=== PATIENT | female | born 1940 | race Caucasian/White ===

== ENCOUNTER 2016-05-20 10:32 | Inpatient (IN) | payer BC ==
--- NOTE | ~2016-05-20 | CN ---
Consultation Report [facility] [address] [place]. [address] NAME: BERTO LOMBARDI : 38 STATUS : ADM Lissa PAT#: [id number] AGE: 76 ADM/REG DATE : 05/20/16 MR#: [id number] REPORT SERV DATE: 05/21/16 DICTATED BY: MIGUEL MURPHY DATE: 05/21/16 REPORT STATUS : Draft TRANSCRIBED BY: MODL DATE: 05/21/16 CONSULT REPORT DATE OF CONSULTATION: 05/21/2016 REASON FOR CONSULTATION: Multivessel coronary artery disease. HISTORY OF PRESENT ILLNESS: This is a pleasant 76-year-old female, who has been experiencing intermittent chest pain for the last couple of months. She had an outpatient cardiac catheterization on 05/11/2016 which showed multivessel coronary artery disease with a 70% calcific ostial lesion to her left main as well as a 70% calcific ostial RCA and a 60% proximal innominate artery. She had an echocardiogram done on April 21 2016 which showed moderate left ventricular systolic dysfunction with ejection fraction around 40% and no significant valvular disease. After her cardiac catheterization 2 weeks ago, she was going to be referred for surgical evaluation for CAB versus high risk PCI versus medical therapy but she came back into the hospital yesterday with complaints of chest pain. Her EKG showed bundle branch block and her cardiac enzymes were negative. Cardiothoracic surgery was consulted for evaluation of CAB. I discussed the plan of care with Dr. Rd Aguirre this morning who thought that due to the location of her lesions that she would be a very high risk PCI patient and considering that she has failed conservative measures so far, we suspect she would be a good candidate for bypass surgery. Currently, she is on a heparin drip with no complaints of chest pain, shortness of breath, or dyspnea on exertion. Her daughter is with her at the bedside. PAST MEDICAL HISTORY: Significant for peripheral vascular disease, high blood pressure, hyperlipidemia, hypothyroidism, coronary artery disease, and left ventricular systolic dysfunction with ejection fraction around 40%. SOCIAL HISTORY: No history of tobacco abuse, use of illicit drugs, or alcohol. She has good family support. FAMILY HISTORY: Reviewed and noncontributory. SURGICAL HISTORY: Prior hysterectomy, cholecystectomy, , and left knee surgery. ALLERGIES: SHE IS ALLERGIC TO PENICILLIN. HOME MEDICATIONS: Artificial Tears 1 drop ophthalmically 3 times a day as needed for dry eyes; aspirin 81 mg p.o. daily; Lipitor 40 mg p.o. at bedtime; Lumigan eyedrops in both eyes as directed; carvedilol 6.25 mg p.o. twice a day; glucosamine 1 tab p.o. daily; hydrochlorothiazide 25 mg p.o. daily; levothyroxine 150 mcg p.o. daily; lisinopril 20 mg p.o. daily; Requip 2 mg p.o. at bedtime; Ultram 50 mg p.o. three times a day as needed; and Effexor 75 mg p.o. daily. Consultation Report [place] [id number] [facility] [place]. [address] NAME: BERTO LOMBARDI : 38 STATUS : ADM Lissa PAT#: [id number] AGE: 76 ADM/REG DATE : 05/20/16 MR#: [id number] REPORT SERV DATE: 05/21/16 DICTATED BY: MIGUEL MURPHY DATE: 05/21/16 REPORT STATUS : Draft TRANSCRIBED BY: ALONSO DATE: 05/21/16 REVIEW OF SYSTEMS: A 12-point review of systems was obtained and is negative other than HPI. PHYSICAL EXAMINATION: VITAL SIGNS: From today, temperature 98 degrees, heart rate 64, blood pressure 149/65, respiratory rate 22, and O2 saturation 99% on 2 L. GENERAL: Pleasant female, overweight, no acute distress. NEUROLOGIC: Alert and oriented x3. Pupils exhibit PERRLA. Equal strength bilaterally. HEENT: Head is normocephalic and atraumatic. Sclerae clear. NECK: Supple. LUNGS: Clear to auscultation bilaterally with normal effort. CARDIAC: S1, S2 with no murmurs, rubs, or gallops. Regular rate and rhythm. ABDOMEN: Soft, obese, and nontender with active bowel sounds. EXTREMITIES: Free of cyanosis, clubbing, or edema. Pedal pulses are present and equal bilaterally. Multiple varicosities to both lower extremities. LAB DATA AND IMAGING DATA: White blood cell count 8.5, hemoglobin 11, hematocrit 33.7, and platelets 275. Sodium 141, potassium 4.1, chloride 106, bicarbonate 27, BUN 28, creatinine 0.97, and glucose 107. She had a chest x-ray on 05/20/2016 which showed no acute abnormality. Carotid ultrasound ordered for today is currently pending. ASSESSMENT AND PLAN: This is a pleasant 76-year-old female with known coronary artery disease per cardiac catheterization 2 weeks ago as described above. She was being considered for conservative therapy versus high risk PCI or referral for evaluation of bypass but she presented back into the emergency room with chest pain yesterday and negative troponins. She needs CAB x2. We discussed the risks and benefits of surgery as well as her STS risk scores. STS risk stratification for her and this particular surgery include an overall mortality of 2.7% and morbidity mortality of 17.3%. Discussed these findings with her and her daughter in relation to the surgery and expectations for recovery and she is agreeable to proceed. She is a very independent woman and does most things for herself at home. I suspect she would do well with surgery and be able to be discharged home after surgery if no complications arise. I will discuss the plan of care with Dr. Juarez who will review the images later today and talk with the patient about surgery. As for now, we will plan surgery for tomorrow afternoon. I discussed this with the patient. She is agreeable to the plan. We will await carotid ultrasound and we will get bilateral lower extremity venous mapping. Thank you for the consultation, and we look forward to helping to care for Ms. Berto Lombardi. Consultation Report [address] [place]. [address] NAME: BERTO LOMBARDI : 38 STATUS : ADM Lissa PAT#: [id number] AGE: 76 ADM/REG DATE : 05/20/16 MR#: [id number] REPORT SERV DATE: 05/21/16 DICTATED BY: MIGUEL MURPHY DATE: 05/21/16 REPORT STATUS : Draft TRANSCRIBED BY: ALONSO DATE: 05/21/16 OPAL/ALONSO Miguel Murphy NP / [id number] CC: Mars Cummings M.D.
--- NOTE | ~2016-05-20 | DS ---
Discharge Summary [facility] [address] [place]. [address] NAME: BERTO LOMBARDI : 38 STATUS : DIS IN PAT#: [id number] AGE: 76 ADM/REG DATE : 05/20/16 MR#: [id number] REPORT SERV DATE: 06/06/16 DICTATED BY: JUAN CARLOS HENRIQUEZ DATE: 06/06/16 REPORT STATUS : Draft TRANSCRIBED BY: ALONSO DATE: 06/06/16 Data Collection from hospitalization DISCHARGE DIAGNOSES: 1. Unstable angina. 2. Hypertension. 3. Hypercholesterolemia. 4. Coronary artery disease status post coronary artery bypass grafting. 5. Acute kidney injury/stage 3 chronic kidney disease. 6. Peripheral vascular disease. CONSULTATIONS: Dr. Maverick Plasencia. PROCEDURES: 1. Median sternotomy, extracorporeal circulation. 2. Urgent coronary artery bypass grafting x3 with ESCALONA to the LAD, reversed greater saphenous vein graft to the obtuse marginal #1. 3. Reversed greater saphenous vein graft placed to the posterior descending artery. 4. Transesophageal echocardiography, endoscopic vein harvest from the bilateral thighs. Prevena dressing in place, 05/23/2016. 5. Carotid blood flow study, 05/21/2016, vein mapping of the bilateral lower extremities, 05/22/2015. DISCHARGE MEDICATIONS: Artificial tears one drop three times a day as needed, vitamin C 1000 mg twice a day, aspirin 81 mg daily, Lipitor 40 mg at bedtime, Lumigan one drop at bedtime, Coreg 6.25 mg twice a day, glucosamine one tablet daily, Altoona 5/325 one to two tablets every six hours as needed, levothyroxine 150 mcg daily, Prinivil 5 mg daily, Zofran 4 mg every six hours as needed, Deltasone 5 mg twice a day as instructed, Requip 2 mg at bedtime, Ultram 50 mg three times a day as needed, Effexor XR 75 mg daily, Orazinc 220 mg daily. She was instructed not to continue hydrochlorothiazide, Prinivil, or Monodox. CONDITION ON DISCHARGE: Stable. DISPOSITION: The patient was discharged home on a low-sodium, low-cholesterol, cardiac diet with activities as instructed. She would follow up with me, 06/26/2016. She would follow up with Dr. Shamar Obregon, 06/22/2016. HOSPITAL COURSE: This is a 76-year-old female, who has coronary artery disease and is now being considered for surgery. She had undergone an extensive workup in the past and had a cardiac catheterization, which demonstrated ostial 70% lesions of the left main and right coronary artery. She was now being considered for bypass surgery. On the day of this admission, she had chest pain, which persisted. She called an ambulance and was brought to the emergency room. She was admitted to the hospital for further evaluation and treatment. Upon admission, EKG revealed left bundle-branch block. Troponin was negative. BNP was not normal. The following day, she had been seen by Dr. Maverick Plasencia. It was felt that the patient will be a very high risk percutaneous coronary intervention patient. The patient had failed conservative measures. It was suspected that she would be a good candidate for Discharge [address] [address] NAME: BERTO LOMBARDI : 38 STATUS : DIS IN PAT#: [id number] AGE: 76 ADM/REG DATE : 05/20/16 MR#: [id number] REPORT SERV DATE: 06/06/16 DICTATED BY: JUAN CARLOS HENRIQUEZ DATE: 06/06/16 REPORT STATUS : Draft TRANSCRIBED BY: ALONSO DATE: 06/06/16 bypass surgery. She was on a heparin drip. She had no complaints of chest pain, shortness of breath, or dyspnea on exertion. A carotid blood flow study was performed as well as vein mapping of the bilateral lower extremities. She has an ejection fraction of 40%. Over the next couple of days, she had no new issues. Plans were being made to proceed with surgery. Orthostatic blood pressures were checked. On 05/23/2016, she was taken to the operating room, where she underwent the above-mentioned procedure. She tolerated this well and there were no complications. On postop day #1, she looked good. She was up sitting in a chair. She had no chest pain. Her lungs were clear. White count was 15. She was then found to have moderate carotid stenosis. She was using incentive spirometry. On 05/25/2016, creatinine level had increased to 1.6. Hydration was being provided. Amlodipine was increased. The next day, she was ambulating in the weber. Creatinine had decreased to 1.3. She was in a normal sinus rhythm. Lipitor was continued. On 05/27/2016, she had diminished breath sounds in her lung bases. White count was 11.7. She was changed to Coreg. Lisinopril was added. She continued to progress. Discharge planning was performed. Norvasc has been added back to her regimen. On 05/29/2016, she was feeling better. Her chest tube was removed. Discharge instructions were given. Due to her improved and stable condition, she was discharged home with the above-stated instructions. Information collected by: Sheila Clements I submit the above information as my discharge summary. TG/MODL Juan Carlos Henriquez MD / [id number] CC: Rd Aguirre M.D. Mars Fernández M.D.
--- NOTE | ~2016-05-20 | OP ---
Record Of Operation [facility] [address] [place]. [address] NAME: BERTO LOMBARDI : 38 STATUS : ADM IN PAT#: [id number] AGE: 76 ADM/REG DATE : 05/20/16 MR#: [id number] REPORT SERV DATE: 05/23/16 DICTATED BY: JUAN CARLOS HENRIQUEZ DATE: 05/23/16 REPORT STATUS : Draft TRANSCRIBED BY: MODL DATE: 05/23/16 DATE OF PROCEDURE: 05/23/2016 SURGEON: Juan Carlos Henriquez MD INSIDE SALES SUPERVISOR: Bhumi Suazo. ANESTHESIOLOGIST: Anmol Callejas M.D. PREOPERATIVE DIAGNOSES: 1. Unstable angina. 2. Left main coronary artery disease. 3. Three-vessel coronary artery disease. 4. Hypertension. 5. Hyperlipidemia. 6. Peripheral vascular disease. 7. Left ventricular systolic dysfunction. POSTOPERATIVE DIAGNOSES: 1. Unstable angina. 2. Left main coronary artery disease. 3. Three-vessel coronary artery disease. 4. Hypertension. 5. Hyperlipidemia. 6. Peripheral vascular disease. 7. Left ventricular systolic dysfunction. OPERATION PROCEDURE PERFORMED: 1. Median sternotomy. 2. Extracorporeal circulation. 3. Urgent coronary bypass grafting x3. 4. Left internal mammary artery, left anterior descending, reverse greater saphenous vein graft to obtuse marginal #1, reverse greater saphenous vein graft to posterior descending artery. 5. Transesophageal echocardiography. 6. Endoscopic vein harvest of bilateral thighs. 7. Prevena dressing in place. TUBES AND DRAINS: A 24-Beninese Zay 32 straight Zay to the left pleural space, a 32-Beninese under the mediastinum, atrial and ventricular wires. COMPLICATIONS: None. POSTOPERATIVE CONDITION: Stable to CVICU, weaned on 5 mcg per kg per minute of dobutamine. DETAILS OF CARDIOPULMONARY BYPASS: Cross-clamp of 66 minutes, total cardiopulmonary bypass Record Of Operation [facility] [address] [place]. [address] NAME: BERTO LOMBARDI : 38 STATUS : ADM IN PAT#: [id number] AGE: 76 ADM/REG DATE : 05/20/16 MR#: [id number] REPORT SERV DATE: 05/23/16 DICTATED BY: JUAN CARLOS HENRIQUEZ DATE: 05/23/16 REPORT STATUS : Draft TRANSCRIBED BY: MODL DATE: 05/23/16 time of 115 minutes. The cardiopulmonary bypass time was extended by extensive rewarming and de-airing, the patient was cooled to 32 and had slightly prolonged warming time secondary to her body habitus. INTRAOPERATIVE FINDINGS: Extremely thin-walled vein from both thighs was used as the bilateral calf veins were deemed to be too small to use. The circumflex vessels distally were extremely small with distal small OMs. The first OM was approximately 1.75 mm, the PDA was 1.75 mm, and the LAD was 2 mm. There was excellent Doppler signals in all grafts both pre and post protamine. DETAILS OF CARDIOPULMONARY BYPASS GRAFTING: Grafts #1, ESCALONA to left anterior descending was 2 mm target. Graft #2, reverse greater saphenous vein graft to posterior descending artery was 1.7 mm target. Graft #3, reverse greater saphenous vein graft to obtuse marginal #1 was 1.75 mm target. Transesophageal echo showed trace MR, normal EF, no AI with an aortic valve area of 1.25 sq cm. INDICATIONS FOR PROCEDURE: Ms. Lombardi is a 76-year-old female with catheterization approximately two weeks prior to the operation and was started on appropriate antianginal, returned to the hospital with unstable angina and was referred for coronary bypass. The patient was seen. Risks, benefits, and alternatives were discussed with the patient including but not limited to, bleeding, infection, stroke, , heart attack, kidney failure, lung failure. All questions were answered. Her STS risk was calculated and discussed mortality of 2.7 and morbidity mortality of 17.3. All questions were answered. DETAILS OF PROCEDURE: The patient was brought to the operating room, placed supine on the operating room table. After satisfactory induction of general endotracheal anesthesia, she was prepped and draped in the usual sterile fashion. Working simultaneously, the bilateral lower extremities, thighs, veins were removed endoscopically and the median sternotomy was performed. Skin and subcutaneous tissues were divided. Clavipectoral fascia was divided. The sternum was divided in the midline. Hemostasis was obtained. Rultract retractor was placed. The internal mammary artery was harvested in a pedicle fashion. It was takeoff under the subclavian vein to the bifurcation of the diaphragm. It was infiltrated with papaverine. Systemic heparinization was achieved. After three minutes, the pedicle was clipped and divided at the bifurcation of the diaphragm. A 24-Beninese Zay was placed in the left pleural space and exteriorized. Chest wall hemostasis was obtained. The retractor was removed. Sternal retractor was placed. Thymic tissue was divided in the midline. Pericardium was opened in the midline and along the diaphragm, the pericardial well was created. Ascending aorta was cannulated at the base of the ascending aorta. Dual stage venous cannula was placed through pursestring in the right atrial appendage. An antegrade root vent cardioplegia tack was placed. The vein was brought up reversed, prepared for bypass. The internal mammary artery was brought down through a wide V in the pericardium and prepared for bypass. Cardiopulmonary bypass was initiated with documentation of an adequate ACT. The targets were then inspected. The targets were as mentioned in the findings. The heart was then arrested with cold antegrade cardioplegia, switching cold antegrade cardioplegia and then with antegrade aliquots every 15 to 20 minutes throughout the remainder of the cross clamp. The two venous anastomoses were performed. The distals were performed with 8-0 Surgipro. The proximal grafts were then performed by incising the Record Of Operation [address] [address] NAME: BERTO LOMBARDI : 38 STATUS : ADM IN PAT#: [id number] AGE: 76 ADM/REG DATE : 05/20/16 MR#: [id number] REPORT SERV DATE: 05/23/16 DICTATED BY: JUAN CARLOS HENRIQUEZ DATE: 05/23/16 REPORT STATUS : Draft TRANSCRIBED BY: ALONSO DATE: 05/23/16 aorta to create a slit aortotomy which was then enlarged with a 5.2 mm punch. The venous anastomoses were then performed using 6-0 Prolene. Vein markers were placed. The internal mammary artery was brought down through the wide V and the pericardium was cut to length, spatulated. The anterior portion of the LAD in a soft spot was opened, was enlarged with coronary scissors. The LAD was then anastomosed to the ESCALONA using 8-0 Surgipro. At the end of the anastomosis, there was excellent flow both post and post and the pre and post anastomosis in the LAD and there was excellent Doppler flow in the ESCALONA. Pedicle was attached to the heart in two places. The cross-clamp was then removed. The grafts were de- aired. The heart was initially fairly sluggish. The dobutamine was started. Echo revealed extensive air throughout the left side of the heart. The apex of the heart was de-aired with a 20-gauge needle. Vigorous de-airing maneuvers were performed as the patient was actively rewarmed to 36.5 degrees. Once the patient was rewarmed and the air was all removed, the patient was weaned from cardiopulmonary bypass, was weaned without incident. Protamine was administered. The patient was decannulated. All cannulation sites were oversewn using 4-0 Prolene. Hemostasis was obtained. A 24-Beninese Zay had been placed in the left pleural space. A 32-Beninese chest tube was placed under the sternum. The pericardium was loosely reapproximated over the aorta and the right ventricle. Sternum was then reapproximated over a 32-Beninese chest tube using stainless steel sternal wire. Clavipectoral fascia was reapproximated using running #1 StrataFix. Skin and subcutaneous tissues closed using continuation of the StrataFix and a 2-0 Quill. Prevena dressing was placed. The patient was transferred to the CVICU in critical stable condition. WMC/MODL Juan Carlos Henriquez MD / [id number] CC: Juan Carlos Henriquez MD
--- NOTE | ~2016-05-20 | HP ---
History And Physical [place] [address] [address] [place]. [address] NAME: BERTO LOMBARDI : 38 STATUS : ADM Lissa PAT#: [id number] AGE: 76 ADM/REG DATE : 05/20/16 MR#: [id number] REPORT SERV DATE: 05/20/16 DICTATED BY: MAVERICK PLASENCIA DATE: 05/20/16 REPORT STATUS : Draft TRANSCRIBED BY: MODL DATE: 05/20/16 DATE OF ADMISSION: 05/20/2016 Berto Lombardi is a 76-year-old female, who has known to have coronary artery disease, who is now being considered for surgery. . Berto Lombardi had extensive workup in the past and cardiac catheterization which demonstrated ostial 70% lesions of the left main and right coronary artery. She is now being considered for bypass surgery. Today, she had chest pain, which persisted, she called the ambulance, and was brought to the emergency room. She is now admitted for consideration of coronary artery bypass grafting. REVIEW OF SYSTEMS: Negative for fever, chills, dysuria, change in bowel habits, rash, productive cough, or melena. Rest is negative. PAST MEDICAL HISTORY: 1. Hypertension, longstanding. 2. Hyperlipidemia, intolerant to statins. 3. Left ventricular dysfunction of 40%. 4. New left bundle-branch block. 5. Coronary artery disease with 70% left main and 70% RCA ostial stenosis. 6. Peripheral vascular disease. SOCIAL HISTORY: She does not drink or smoke. She has strong family support. FAMILY HISTORY: Negative for early heart disease. PHYSICAL EXAMINATION: VITAL SIGNS: Blood pressure 146/69, pulse of 69, and she is afebrile. GENERAL: Resting comfortably, nutritional status appears adequate. EYES: PERRLA. LUNGS: No labored use of accessory muscles. Without rales or wheezes. COR: PMI is not displaced. No thrills or heaves. NL S1 and S2. No S3, murmur, click or rub. PULSES: Carotids without bruits. ABD: +BS, nontender. EXT: No cyanosis, clubbing or edema. SKIN: No petechiae. NEURO: Alert and oriented. Does not appear anxious or depressed. LABORATORY EVALUATION: EKG shows left bundle-branch block. Creatinine is 0.9. Troponin is negative. BNP is not normal. ASSESSMENT: At this time, we will admit and consider surgical consult for coronary artery bypass grafting. History And Physical [address] [place]. [address] NAME: BERTO LOMBARDI : 38 STATUS : ADM Lissa PAT#: [id number] AGE: 76 ADM/REG DATE : 05/20/16 MR#: [id number] REPORT SERV DATE: 05/20/16 DICTATED BY: MAVERICK PLASENCIA DATE: 05/20/16 REPORT STATUS : Draft TRANSCRIBED BY: ALONSO DATE: 05/20/16 GG/ALONSO Maverick Plasencia M.D. / [id number] CC: Rd Aguirre M.D.
[~2016-05-20 10:32] MED LIST: ASAB PO; COREG6 PO; COSAMIN DS1 TAB PO; CRANBERRY OTC PO; CRESTOR10 PO; EFFEX75 PO; EFFEXXR75 PO; FLEXI JOIN1 PO; HCTZ25B PO; HYDROCHLOROT25 MG PO; LEVOTHROID75 MCG PO; LEVOTHYROXIN100 MCG PO; LEVOTHYROXIN150 MCG PO; LIPITOR40 PO; LUMIGAN2.5 ML OPH; NAP375 PO; NEUR100 PO; NORV25 PO; PRIN20 PO; REQUIP2 PO; TEARS PURE OPH; ULTRAM50 PO; ZESTRIL20 MG PO
[2016-05-20 10:53] LABS: BASOPHILS 0.3 %; BASOPHILS ABSOLUTE 0.02 10/3/uL (0.0-0.16); EOSINOPHILS 2.5 %; EOSINOPHILS ABSOLUTE 0.19 10/3/uL (0.0-0.53); ER CBC TAT 0 Hrs 03 Mins; HEMATOCRIT 36.3 % (36.0-48.0); HEMOGLOBIN 11.8 g/dL (12.0-16.0); IMMATURE GRANULOCYTES 0.3 %; IMMATURE GRANULOCYTES ABSOLUTE 0.02 10/3/uL (0.0-0.11); LYMPHOCYTES ABSOLUTE 1.82 10/3/uL (0.67-4.30); MEAN CORPUS HGB CONC 32.5 g/dL (32.0-36.0); MEAN CORPUSCULAR HEMOGLOB 29.6 pg (26.0-34.0); MEAN PLATELET VOLUME 10.3 fL (9.2-13.0); MONOCYTES 6.1 %; MONOCYTES ABSOLUTE 0.46 10/3/uL (0.21-1.20); NEUTROPHILS 66.8 %; NEUTROPHILS ABSOLUTE 5.08 10/3/uL (2.02-8.40); PLATELET COUNT 308 10/3/uL (150-400); RBC DISTRIBUTION WIDTH 13.3 % (12.0-16.0); RED CELL COUNT 3.99 10/6/uL (4.0-5.6); WHITE BLOOD CELLS 7.6 10/3/uL (4.5-10.5)
[2016-05-20 10:54] LABS: MANUAL DIFF NO %
[2016-05-20 11:01] LABS: INTERNATIONAL NORMAL RATI 1.1 UNITS (-); PARTIAL THROMBO TIME 25.9 SEC (22.5-37.2); PROTIME (NOT ORD) 14.4 SEC (12.0-14.5)
[2016-05-20 11:10] LABS: CALCIUM, SERUM 9.9 MG/DL (8.5-10.4); CHEST PAIN PROFILE TAT 0 Hrs 20 Mins; CHLORIDE, SERUM 106 MMOL/L (96-112); CO2 (CARBON DIOXIDE) 27 MMOL/L (24-34); CREATININE 0.97 MG/DL (0.55-1.02); GFR AFRICAN AMERICAN 65 ML/MIN (>=60); GFR NON AFRICAN AMERICAN 56 ML/MIN (>=60); GLUCOSE, SERUM 107 MG/DL (60-99); POTASSIUM, SERUM 4.1 MMOL/L (3.5-5.3); SODIUM, SERUM 141 MMOL/L (135-148); TROPONIN I <0.02 NG/ML (<0.05)
[2016-05-20 11:11] LABS: BUN (BLOOD UREA NITROGEN) 28 MG/DL (6-23)
[2016-05-20] MEDS ORDERED: MONODOX100 MG PO (11:34)
[2016-05-20] MEDS ORDERED: GLUCOSAMINEPO PO (11:34)
[2016-05-21 05:37] LABS: BASOPHILS 0.5 %; BASOPHILS ABSOLUTE 0.04 10/3/uL (0.0-0.16); EOSINOPHILS 3.2 %; EOSINOPHILS ABSOLUTE 0.27 10/3/uL (0.0-0.53); HEMATOCRIT 33.7 % (36.0-48.0); IMMATURE GRANULOCYTES 0.4 %; IMMATURE GRANULOCYTES ABSOLUTE 0.03 10/3/uL (0.0-0.11); LYMPHOCYTES 28.5 %; LYMPHOCYTES ABSOLUTE 2.41 10/3/uL (0.67-4.30); MEAN CORPUS HGB CONC 32.6 g/dL (32.0-36.0); MEAN CORPUSCULAR HEMOGLOB 29.6 pg (26.0-34.0); MEAN CORPUSCULAR VOLUME 90.6 fL (80-100); MEAN PLATELET VOLUME 10.1 fL (9.2-13.0); MONOCYTES 6.7 %; MONOCYTES ABSOLUTE 0.57 10/3/uL (0.21-1.20); NEUTROPHILS 60.7 %; NEUTROPHILS ABSOLUTE 5.15 10/3/uL (2.02-8.40); PLATELET COUNT 275 10/3/uL (150-400); RBC DISTRIBUTION WIDTH 13.4 % (12.0-16.0); RED CELL COUNT 3.72 10/6/uL (4.0-5.6); WHITE BLOOD CELLS 8.5 10/3/uL (4.5-10.5)
[2016-05-21 05:40] LABS: MANUAL DIFF NO %
[2016-05-21 05:56] LABS: CHOL/HDL RATIO(NOT ORDER) 3.9 (0-5)
[2016-05-22 06:07] LABS: BASOPHILS 0.6 %; BASOPHILS ABSOLUTE 0.06 10/3/uL (0.0-0.16); EOSINOPHILS 4.1 %; EOSINOPHILS ABSOLUTE 0.38 10/3/uL (0.0-0.53); HEMATOCRIT 35.3 % (36.0-48.0); HEMOGLOBIN 11.7 g/dL (12.0-16.0); IMMATURE GRANULOCYTES 0.4 %; IMMATURE GRANULOCYTES ABSOLUTE 0.04 10/3/uL (0.0-0.11); LYMPHOCYTES 25.1 %; LYMPHOCYTES ABSOLUTE 2.33 10/3/uL (0.67-4.30); MANUAL DIFF NO %; MEAN CORPUS HGB CONC 33.1 g/dL (32.0-36.0); MEAN CORPUSCULAR HEMOGLOB 30.5 pg (26.0-34.0); MEAN CORPUSCULAR VOLUME 92.2 fL (80-100); MEAN PLATELET VOLUME 10.5 fL (9.2-13.0); MONOCYTES 7.1 %; MONOCYTES ABSOLUTE 0.66 10/3/uL (0.21-1.20); NEUTROPHILS 62.7 %; PLATELET COUNT 266 10/3/uL (150-400); RBC DISTRIBUTION WIDTH 13.5 % (12.0-16.0); RED CELL COUNT 3.83 10/6/uL (4.0-5.6); WHITE BLOOD CELLS 9.3 10/3/uL (4.5-10.5)
[2016-05-22 06:14] LABS: INTERNATIONAL NORMAL RATI 1.2 UNITS (-); PROTIME (NOT ORD) 14.9 SEC (12.0-14.5)
[2016-05-22 06:15] LABS: PARTIAL THROMBO TIME 92.1 SEC (22.5-37.2)
[2016-05-22 06:20] LABS: ALBUMIN 3.5 G/DL (3.5-5.0); ALKALINE PHOSPHATASE 59 U/L (45-117); BUN (BLOOD UREA NITROGEN) 27 MG/DL (6-23); CALCIUM, SERUM 9.3 MG/DL (8.5-10.4); CHLORIDE, SERUM 103 MMOL/L (96-112); CO2 (CARBON DIOXIDE) 23 MMOL/L (24-34); CREATININE 0.93 MG/DL (0.55-1.02); GFR AFRICAN AMERICAN 68 ML/MIN (>=60); GFR NON AFRICAN AMERICAN 59 ML/MIN (>=60); GLOBULIN 3.5 G/DL (2.5-4.1); GLUCOSE, SERUM 111 MG/DL (60-99); POTASSIUM, SERUM 3.9 MMOL/L (3.5-5.3); SGOT(AST) 18 U/L (5-40); SGPT(ALT) 16 U/L (5-65); SODIUM, SERUM 136 MMOL/L (135-148)
[2016-05-22 06:23] LABS: TOTAL BILIRUBIN 0.3 MG/DL (0-1.2)
[2016-05-23 05:14] LABS: INTERNATIONAL NORMAL RATI 1.2 UNITS (-); PROTIME (NOT ORD) 14.7 SEC (12.0-14.5)
[2016-05-23 05:19] LABS: BASOPHILS 0.4 %; BASOPHILS ABSOLUTE 0.04 10/3/uL (0.0-0.16); EOSINOPHILS 3.4 %; EOSINOPHILS ABSOLUTE 0.32 10/3/uL (0.0-0.53); HEMATOCRIT 34.8 % (36.0-48.0); HEMOGLOBIN 11.5 g/dL (12.0-16.0); IMMATURE GRANULOCYTES ABSOLUTE 0.09 10/3/uL (0.0-0.11); LYMPHOCYTES ABSOLUTE 2.08 10/3/uL (0.67-4.30); MEAN CORPUSCULAR HEMOGLOB 30.5 pg (26.0-34.0); MEAN CORPUSCULAR VOLUME 92.3 fL (80-100); MEAN PLATELET VOLUME 10.4 fL (9.2-13.0); MONOCYTES ABSOLUTE 0.57 10/3/uL (0.21-1.20); NEUTROPHILS 67.2 %; NEUTROPHILS ABSOLUTE 6.35 10/3/uL (2.02-8.40); PLATELET COUNT 277 10/3/uL (150-400); RBC DISTRIBUTION WIDTH 13.4 % (12.0-16.0); RED CELL COUNT 3.77 10/6/uL (4.0-5.6); WHITE BLOOD CELLS 9.5 10/3/uL (4.5-10.5)
[2016-05-23 05:21] LABS: MANUAL DIFF NO %
[2016-05-23 05:41] LABS: ALBUMIN 3.3 G/DL (3.5-5.0); ALKALINE PHOSPHATASE 54 U/L (45-117); BUN (BLOOD UREA NITROGEN) 24 MG/DL (6-23); CALCIUM, SERUM 9.5 MG/DL (8.5-10.4); CHLORIDE, SERUM 105 MMOL/L (96-112); CO2 (CARBON DIOXIDE) 24 MMOL/L (24-34); CREATININE 1.04 MG/DL (0.55-1.02); GFR AFRICAN AMERICAN 60 ML/MIN (>=60); GFR NON AFRICAN AMERICAN 51 ML/MIN (>=60); GLUCOSE, SERUM 113 MG/DL (60-99); POTASSIUM, SERUM 4.1 MMOL/L (3.5-5.3); SGOT(AST) 14 U/L (5-40); SGPT(ALT) 17 U/L (5-65); SODIUM, SERUM 139 MMOL/L (135-148); TOTAL BILIRUBIN 0.2 MG/DL (0-1.2); TOTAL PROTEIN 6.7 G/DL (6.0-8.5)
[2016-05-23 05:51] LABS: DIRECT BILIRUBIN < 0.1 MG/DL (0.0-0.4); INDIRECT BILIRUBIN(NOT ORDER) 0.1 MG/DL (0.1-0.9)
[2016-05-23 17:09] LABS: BE (BASE EXCESS) -6.4 MEQ/L (0 +/- 2.5); CARBOXYHEMOGLOBIN 0.3 % (0-3); HCO3 (ACTUAL BICARBONATE) 18.7 MEQ/L (23-27); HEMOBLOGIN CONTENT 8.8 G/DL (12-16); INSTRUMENT SERIAL # 11843; METHEMOGLOBIN 0.4 % (0-3); MODE SIMV; O2 CONTENT 12.7 VOL% (18-24); OPERATOR ID 19104; PCO2 (CO2 TENSION) 35 MMHG (35-45); PO2 (O2 TENSION) 236 MMHG (79-93); SAMPLE Arterial; TIDAL VOLUME 500 ML; pH 7.34 (7.37-7.43)
[2016-05-23 17:23] LABS: FIBRINOGEN 266 MG/DL (230-462); INTERNATIONAL NORMAL RATI 1.6 UNITS (-); PARTIAL THROMBO TIME 34.9 SEC (22.5-37.2); PROTIME (NOT ORD) 18.9 SEC (12.0-14.5)
[2016-05-23 17:27] LABS: HEMATOCRIT 26.1 % (36.0-48.0); HEMOGLOBIN 8.6 g/dL (12.0-16.0); PLATELET COUNT 120 10/3/uL (150-400)
[2016-05-23 19:04] LABS: CALCIUM, SERUM 9.1 MG/DL (8.5-10.4); CHLORIDE, SERUM 111 MMOL/L (96-112); CO2 (CARBON DIOXIDE) 22 MMOL/L (24-34); CREATININE 1.03 MG/DL (0.55-1.02); GFR AFRICAN AMERICAN 60 ML/MIN (>=60); GFR NON AFRICAN AMERICAN 52 ML/MIN (>=60); GLUCOSE, SERUM 91 MG/DL (60-99); POTASSIUM, SERUM 3.8 MMOL/L (3.5-5.3); SODIUM, SERUM 143 MMOL/L (135-148)
[2016-05-23 19:05] LABS: BUN (BLOOD UREA NITROGEN) 19 MG/DL (6-23)
[2016-05-23 22:29] LABS: INSTRUMENT SERIAL # 11843; pH 7.33 (7.37-7.43)
[2016-05-23 22:30] LABS: BE (BASE EXCESS) -1.2 MEQ/L (0 +/- 2.5); CARBOXYHEMOGLOBIN 0.3 % (0-3); DEVICE NC; HCO3 (ACTUAL BICARBONATE) 24.8 MEQ/L (23-27); HEMOBLOGIN CONTENT 9.2 G/DL (12-16); METHEMOGLOBIN 0.2 % (0-3); O2 CONTENT 12.2 VOL% (18-24); OPERATOR ID 13744; PCO2 (CO2 TENSION) 48 MMHG (35-45); PO2 (O2 TENSION) 80 MMHG (79-93); SAMPLE Arterial
[2016-05-24 03:36] LABS: BASOPHILS 0.1 %; BASOPHILS ABSOLUTE 0.02 10/3/uL (0.0-0.16); EOSINOPHILS 0 %; HEMOGLOBIN 8.5 g/dL (12.0-16.0); IMMATURE GRANULOCYTES 0.3 %; IMMATURE GRANULOCYTES ABSOLUTE 0.05 10/3/uL (0.0-0.11); LYMPHOCYTES 6.3 %; LYMPHOCYTES ABSOLUTE 0.98 10/3/uL (0.67-4.30); MEAN CORPUS HGB CONC 32.7 g/dL (32.0-36.0); MEAN CORPUSCULAR HEMOGLOB 29.8 pg (26.0-34.0); MEAN CORPUSCULAR VOLUME 91.2 fL (80-100); MEAN PLATELET VOLUME 10.7 fL (9.2-13.0); MONOCYTES 3.7 %; MONOCYTES ABSOLUTE 0.58 10/3/uL (0.21-1.20); NEUTROPHILS 89.6 %; NEUTROPHILS ABSOLUTE 13.97 10/3/uL (2.02-8.40); RBC DISTRIBUTION WIDTH 13.8 % (12.0-16.0)
[2016-05-24 03:44] LABS: PLATELET COUNT 170 10/3/uL (150-400); RED CELL COUNT 2.85 10/6/uL (4.0-5.6); WHITE BLOOD CELLS 15.6 10/3/uL (4.5-10.5)
[2016-05-24 03:45] LABS: MANUAL DIFF NO %
[2016-05-24 03:52] LABS: BUN (BLOOD UREA NITROGEN) 21 MG/DL (6-23); CALCIUM, SERUM 8.8 MG/DL (8.5-10.4); CHLORIDE, SERUM 113 MMOL/L (96-112); CO2 (CARBON DIOXIDE) 26 MMOL/L (24-34); CREATININE 0.93 MG/DL (0.55-1.02); GFR AFRICAN AMERICAN 68 ML/MIN (>=60); GFR NON AFRICAN AMERICAN 59 ML/MIN (>=60); GLUCOSE, SERUM 103 MG/DL (60-99); POTASSIUM, SERUM 4.4 MMOL/L (3.5-5.3); SODIUM, SERUM 147 MMOL/L (135-148)
[2016-05-24 16:03] LABS: HEMATOCRIT 27.9 % (36.0-48.0); HEMOGLOBIN 8.8 g/dL (12.0-16.0)
[2016-05-25 06:36] LABS: BASOPHILS 0.1 %; BASOPHILS ABSOLUTE 0.02 10/3/uL (0.0-0.16); EOSINOPHILS 0.1 %; EOSINOPHILS ABSOLUTE 0.02 10/3/uL (0.0-0.53); HEMATOCRIT 25.9 % (36.0-48.0); HEMOGLOBIN 8.4 g/dL (12.0-16.0); IMMATURE GRANULOCYTES 0.6 %; LYMPHOCYTES ABSOLUTE 1.65 10/3/uL (0.67-4.30); MEAN CORPUS HGB CONC 32.4 g/dL (32.0-36.0); MEAN CORPUSCULAR HEMOGLOB 30.8 pg (26.0-34.0); MEAN PLATELET VOLUME 11.2 fL (9.2-13.0); MONOCYTES 7.2 %; MONOCYTES ABSOLUTE 1.19 10/3/uL (0.21-1.20); NEUTROPHILS ABSOLUTE 13.51 10/3/uL (2.02-8.40); PLATELET COUNT 161 10/3/uL (150-400); RBC DISTRIBUTION WIDTH 14.3 % (12.0-16.0); RED CELL COUNT 2.73 10/6/uL (4.0-5.6); WHITE BLOOD CELLS 16.5 10/3/uL (4.5-10.5)
[2016-05-25 06:38] LABS: MANUAL DIFF NO %; MEAN CORPUSCULAR VOLUME 94.9 fL (80-100)
[2016-05-25 06:40] LABS: CALCIUM, SERUM 9.4 MG/DL (8.5-10.4); CHLORIDE, SERUM 107 MMOL/L (96-112); CO2 (CARBON DIOXIDE) 25 MMOL/L (24-34); POTASSIUM, SERUM 5.1 MMOL/L (3.5-5.3); SODIUM, SERUM 141 MMOL/L (135-148)
[2016-05-25 06:46] LABS: BUN (BLOOD UREA NITROGEN) 36 MG/DL (6-23); CREATININE 1.64 MG/DL (0.55-1.02); GFR AFRICAN AMERICAN 34 ML/MIN (>=60); GFR NON AFRICAN AMERICAN 30 ML/MIN (>=60); GLUCOSE, SERUM 160 MG/DL (60-99)
[2016-05-25 15:35] LABS: ASCORBIC ACID (UR NOT ORDER) 40 (NEG); BILIRUBIN, URINE NEGATIVE (NEG); KETONE, URINE TRACE MG/DL (NEG); LEUKOCYTE ESTERASE(NOT OR TRACE (NEG); WBC (NOT ORDERED) (RFLEX) 4 (0-5)
[2016-05-26 07:10] LABS: ALBUMIN 3.5 G/DL (3.5-5.0); BUN (BLOOD UREA NITROGEN) 44 MG/DL (6-23); CALCIUM, SERUM 8.8 MG/DL (8.5-10.4); CHLORIDE, SERUM 102 MMOL/L (96-112); CO2 (CARBON DIOXIDE) 28 MMOL/L (24-34); GFR AFRICAN AMERICAN 46 ML/MIN (>=60); GFR NON AFRICAN AMERICAN 39 ML/MIN (>=60); GLUCOSE, SERUM 108 MG/DL (60-99); PHOSPHORUS, SERUM 3.3 MG/DL (2.5-4.5); POTASSIUM, SERUM 4.2 MMOL/L (3.5-5.3); SODIUM, SERUM 137 MMOL/L (135-148)
[2016-05-26 11:02] LABS: BASOPHILS 0.2 %; BASOPHILS ABSOLUTE 0.03 10/3/uL (0.0-0.16); EOSINOPHILS 0.6 %; EOSINOPHILS ABSOLUTE 0.09 10/3/uL (0.0-0.53); HEMOGLOBIN 8.1 g/dL (12.0-16.0); IMMATURE GRANULOCYTES 0.6 %; IMMATURE GRANULOCYTES ABSOLUTE 0.08 10/3/uL (0.0-0.11); LYMPHOCYTES 12.2 %; LYMPHOCYTES ABSOLUTE 1.77 10/3/uL (0.67-4.30); MEAN CORPUS HGB CONC 32.4 g/dL (32.0-36.0); MEAN CORPUSCULAR HEMOGLOB 30.9 pg (26.0-34.0); MEAN CORPUSCULAR VOLUME 95.4 fL (80-100); MEAN PLATELET VOLUME 11.3 fL (9.2-13.0); MONOCYTES 8.3 %; NEUTROPHILS 78.1 %; NEUTROPHILS ABSOLUTE 11.35 10/3/uL (2.02-8.40); NUCLEATED RED BLOOD CELLS 0.2 /100WBC (0-0); PLATELET COUNT 173 10/3/uL (150-400); RBC DISTRIBUTION WIDTH 14.2 % (12.0-16.0); RED CELL COUNT 2.62 10/6/uL (4.0-5.6); WHITE BLOOD CELLS 14.5 10/3/uL (4.5-10.5)
[2016-05-26 11:03] LABS: MANUAL DIFF NO %
[2016-05-27 06:53] LABS: BASOPHILS 0.2 %; BASOPHILS ABSOLUTE 0.02 10/3/uL (0.0-0.16); EOSINOPHILS 1.5 %; EOSINOPHILS ABSOLUTE 0.17 10/3/uL (0.0-0.53); HEMATOCRIT 23.5 % (36.0-48.0); HEMOGLOBIN 7.5 g/dL (12.0-16.0); IMMATURE GRANULOCYTES 0.7 %; IMMATURE GRANULOCYTES ABSOLUTE 0.08 10/3/uL (0.0-0.11); LYMPHOCYTES 13.8 %; LYMPHOCYTES ABSOLUTE 1.62 10/3/uL (0.67-4.30); MANUAL DIFF NO %; MEAN CORPUS HGB CONC 31.9 g/dL (32.0-36.0); MEAN CORPUSCULAR HEMOGLOB 29.6 pg (26.0-34.0); MEAN CORPUSCULAR VOLUME 92.9 fL (80-100); MEAN PLATELET VOLUME 11.1 fL (9.2-13.0); MONOCYTES 7.9 %; MONOCYTES ABSOLUTE 0.93 10/3/uL (0.21-1.20); NEUTROPHILS 75.9 %; NEUTROPHILS ABSOLUTE 8.89 10/3/uL (2.02-8.40); PLATELET COUNT 199 10/3/uL (150-400); RBC DISTRIBUTION WIDTH 14.1 % (12.0-16.0); RED CELL COUNT 2.53 10/6/uL (4.0-5.6); WHITE BLOOD CELLS 11.7 10/3/uL (4.5-10.5)
[2016-05-27 07:03] LABS: CALCIUM, SERUM 8.8 MG/DL (8.5-10.4); CHLORIDE, SERUM 102 MMOL/L (96-112); CO2 (CARBON DIOXIDE) 28 MMOL/L (24-34); CREATININE 1.06 MG/DL (0.55-1.02); GFR AFRICAN AMERICAN 58 ML/MIN (>=60); GFR NON AFRICAN AMERICAN 50 ML/MIN (>=60); GLUCOSE, SERUM 123 MG/DL (60-99); POTASSIUM, SERUM 4.2 MMOL/L (3.5-5.3); SODIUM, SERUM 138 MMOL/L (135-148)
[2016-05-27 07:05] LABS: BUN (BLOOD UREA NITROGEN) 38 MG/DL (6-23)
[2016-05-27 16:47] LABS: HEMOGLOBIN 8.1 g/dL (12.0-16.0)
[2016-05-28 05:00] LABS: BASOPHILS 0.2 %; BASOPHILS ABSOLUTE 0.02 10/3/uL (0.0-0.16); EOSINOPHILS 1.9 %; EOSINOPHILS ABSOLUTE 0.21 10/3/uL (0.0-0.53); HEMATOCRIT 22.7 % (36.0-48.0); HEMOGLOBIN 7.3 g/dL (12.0-16.0); IMMATURE GRANULOCYTES 0.5 %; IMMATURE GRANULOCYTES ABSOLUTE 0.06 10/3/uL (0.0-0.11); LYMPHOCYTES 13.2 %; LYMPHOCYTES ABSOLUTE 1.44 10/3/uL (0.67-4.30); MANUAL DIFF NO %; MEAN CORPUS HGB CONC 32.2 g/dL (32.0-36.0); MEAN CORPUSCULAR HEMOGLOB 29.4 pg (26.0-34.0); MEAN CORPUSCULAR VOLUME 91.5 fL (80-100); MEAN PLATELET VOLUME 10.4 fL (9.2-13.0); MONOCYTES 8.5 %; MONOCYTES ABSOLUTE 0.93 10/3/uL (0.21-1.20); NEUTROPHILS 75.7 %; NEUTROPHILS ABSOLUTE 8.25 10/3/uL (2.02-8.40); PLATELET COUNT 236 10/3/uL (150-400); RBC DISTRIBUTION WIDTH 14.3 % (12.0-16.0); RED CELL COUNT 2.48 10/6/uL (4.0-5.6); WHITE BLOOD CELLS 10.9 10/3/uL (4.5-10.5)
[2016-05-28 05:03] LABS: CALCIUM, SERUM 8.5 MG/DL (8.5-10.4); CHLORIDE, SERUM 103 MMOL/L (96-112); CO2 (CARBON DIOXIDE) 28 MMOL/L (24-34); CREATININE 0.96 MG/DL (0.55-1.02); GFR AFRICAN AMERICAN 66 ML/MIN (>=60); GFR NON AFRICAN AMERICAN 57 ML/MIN (>=60); GLUCOSE, SERUM 120 MG/DL (60-99); POTASSIUM, SERUM 4.3 MMOL/L (3.5-5.3); SODIUM, SERUM 139 MMOL/L (135-148)
[2016-05-28 05:05] LABS: BUN (BLOOD UREA NITROGEN) 29 MG/DL (6-23)
[2016-05-29 06:10] LABS: BASOPHILS 0.3 %; BASOPHILS ABSOLUTE 0.04 10/3/uL (0.0-0.16); EOSINOPHILS 2.5 %; EOSINOPHILS ABSOLUTE 0.33 10/3/uL (0.0-0.53); HEMATOCRIT 25.5 % (36.0-48.0); HEMOGLOBIN 8.3 g/dL (12.0-16.0); IMMATURE GRANULOCYTES 1.5 %; LYMPHOCYTES 16.5 %; LYMPHOCYTES ABSOLUTE 2.15 10/3/uL (0.67-4.30); MANUAL DIFF NO %; MEAN CORPUS HGB CONC 32.5 g/dL (32.0-36.0); MEAN CORPUSCULAR HEMOGLOB 30.4 pg (26.0-34.0); MEAN CORPUSCULAR VOLUME 93.4 fL (80-100); MEAN PLATELET VOLUME 10.1 fL (9.2-13.0); MONOCYTES 8.7 %; MONOCYTES ABSOLUTE 1.13 10/3/uL (0.21-1.20); NEUTROPHILS 70.5 %; NEUTROPHILS ABSOLUTE 9.19 10/3/uL (2.02-8.40); PLATELET COUNT 329 10/3/uL (150-400); RBC DISTRIBUTION WIDTH 14.4 % (12.0-16.0); RED CELL COUNT 2.73 10/6/uL (4.0-5.6)
[2016-05-29 06:15] LABS: INTERNATIONAL NORMAL RATI 1.2 UNITS (-)
[2016-05-29 06:17] LABS: PROTIME (NOT ORD) 14.8 SEC (12.0-14.5)
[2016-05-29 06:23] LABS: CALCIUM, SERUM 8.8 MG/DL (8.5-10.4); CHLORIDE, SERUM 97 MMOL/L (96-112); CO2 (CARBON DIOXIDE) 32 MMOL/L (24-34); CREATININE 1.03 MG/DL (0.55-1.02); GFR AFRICAN AMERICAN 60 ML/MIN (>=60); GFR NON AFRICAN AMERICAN 52 ML/MIN (>=60); GLUCOSE, SERUM 114 MG/DL (60-99); POTASSIUM, SERUM 3.5 MMOL/L (3.5-5.3); SODIUM, SERUM 138 MMOL/L (135-148)
[2016-05-29 06:24] LABS: BUN (BLOOD UREA NITROGEN) 25 MG/DL (6-23)
[2016-05-29] MEDS ORDERED: VITC500 PO (09:47)
[2016-05-29] MEDS ORDERED: PRIN5 PO (09:52)
[2016-05-29] MEDS ORDERED: ZOFRAN4 PO (09:53)
[2016-05-29] MEDS ORDERED: NORCO1 TA1 PO (09:54)
[2016-05-29] MEDS ORDERED: P5 PO (09:57)
[2016-05-29] MEDS ORDERED: ZINC220C (10:16)
== END 2016-05-29 12:25 | disposition home or self-care (01) | DRG 236 ==
LOC: ER 10:32 → CDU1 16:15 → 7NO 05-21 14:49 → SDC/OF 05-23 10:41 → CVICU 05-23 16:06 → 5NO 05-24 15:16
PROVIDERS: Anesthesiology; Emergency Medicine; Internal Medicine Cardiovascular Disease; Nurse Practitioner Family; Thoracic Surgery (Cardiothoracic Vascular Surgery)
PROC: 06BP4ZZ Excision of Right Saphenous Vein, Percutaneous Endoscopic Approach (ICD-10-PCS; 2016-05-23)
PROC: 5A1221Z Performance of Cardiac Output, Continuous (ICD-10-PCS; 2016-05-23)
PROC: B246ZZ4 Ultrasonography of Right and Left Heart, Transesophageal (ICD-10-PCS; 2016-05-23)
PROC: 021109W Bypass Coronary Artery, Two Arteries from Aorta with Autologous Venous Tissue, Open Approach (ICD-10-PCS; principal; 2016-05-23 10:30)
PROC: 02100Z9 Bypass Coronary Artery, One Artery from Left Internal Mammary, Open Approach (ICD-10-PCS; 2016-05-23 10:30)
PROC: 06BQ4ZZ Excision of Left Saphenous Vein, Percutaneous Endoscopic Approach (ICD-10-PCS; 2016-05-23 10:30)
DX: I25.110 Atherosclerotic heart disease of native coronary artery with unstable angina pectoris (principal); N17.9 Acute kidney failure, unspecified; I44.7 Left bundle-branch block, unspecified; I11.0 Hypertensive heart disease with heart failure; I50.22 Chronic systolic (congestive) heart failure; I65.21 Occlusion and stenosis of right carotid artery; D62 Acute posthemorrhagic anemia; I73.9 Peripheral vascular disease, unspecified; E78.5 Hyperlipidemia, unspecified; E03.9 Hypothyroidism, unspecified
CPT/HCPCS: 36415; 71010; 71020; 80048; 80053; 80061; 80069; 80076; 81001; 82330; 82803; 82805; 82947; 82962; 83036; 83735; 83880; 84132; 84295; 84460; 84484; 85014; 85018; 85025; 85049; 85347; 85384; 85610; 85730; 86850; 86900; 86901; 87641; 93005; 93312; 93320; 93325; 93880; 94002; 94640; 94660; 94770; 99291; A9270-GY; C1713; C1769; C1894; G0365; J0690; J1580; J1644; J1940; J2150; J2250; J2370; J2405; J2440; J2720; J2930; J3010; J3370; J3475; J3480; P9045; P9047

== ENCOUNTER 2016-06-16 23:32 | Emergency (ER) | payer BC ==
[2016-06-16 22:41] LABS: BASOPHILS 0.4 %; BASOPHILS ABSOLUTE 0.04 10/3/uL (0.0-0.16); EOSINOPHILS 3.7 %; EOSINOPHILS ABSOLUTE 0.34 10/3/uL (0.0-0.53); HEMATOCRIT 31.8 % (36.0-48.0); HEMOGLOBIN 9.9 g/dL (12.0-16.0); IMMATURE GRANULOCYTES 0.5 %; IMMATURE GRANULOCYTES ABSOLUTE 0.05 10/3/uL (0.0-0.11); LYMPHOCYTES 24.4 %; LYMPHOCYTES ABSOLUTE 2.27 10/3/uL (0.67-4.30); MANUAL DIFF NO %; MEAN CORPUS HGB CONC 31.1 g/dL (32.0-36.0); MEAN CORPUSCULAR HEMOGLOB 30.3 pg (26.0-34.0); MEAN CORPUSCULAR VOLUME 97.2 fL (80-100); MEAN PLATELET VOLUME 9.4 fL (9.2-13.0); MONOCYTES 6.7 %; MONOCYTES ABSOLUTE 0.62 10/3/uL (0.21-1.20); NEUTROPHILS 64.3 %; NEUTROPHILS ABSOLUTE 5.98 10/3/uL (2.02-8.40); PLATELET COUNT 327 10/3/uL (150-400); RBC DISTRIBUTION WIDTH 15.8 % (12.0-16.0); RED CELL COUNT 3.27 10/6/uL (4.0-5.6); WHITE BLOOD CELLS 9.3 10/3/uL (4.5-10.5)
[2016-06-16 22:55] LABS: BUN (BLOOD UREA NITROGEN) 28 MG/DL (6-23); CALCIUM, SERUM 8.5 MG/DL (8.5-10.4); CHLORIDE, SERUM 104 MMOL/L (96-112); CO2 (CARBON DIOXIDE) 27 MMOL/L (24-34); CREATININE 1.27 MG/DL (0.55-1.02); GFR AFRICAN AMERICAN 47 ML/MIN (>=60); GFR NON AFRICAN AMERICAN 40 ML/MIN (>=60); GLUCOSE, SERUM 98 MG/DL (60-99); POTASSIUM, SERUM 4.8 MMOL/L (3.5-5.3); SODIUM, SERUM 141 MMOL/L (135-148)
[~2016-06-16 23:32] MED LIST changes: +GLUCOSAMINEPO PO; +MONODOX100 MG PO; +NORCO1 TA1 PO; +P5 PO; +PRIN5 PO; +VITC500 PO; +ZINC220C; +ZOFRAN4 PO
== END 2016-06-17 00:02 | disposition home or self-care (01) ==
LOC: ER 23:32
PROVIDERS: Hospitalist
DX: L03.115 Cellulitis of right lower limb (principal); I12.9 Hypertensive chronic kidney disease with stage 1 through stage 4 chronic kidney disease, or unspecified chronic kidney disease; N18.9 Chronic kidney disease, unspecified; I25.10 Atherosclerotic heart disease of native coronary artery without angina pectoris; Z88.0 Allergy status to penicillin; Z88.2 Allergy status to sulfonamides; Z79.82 Long term (current) use of aspirin; Z79.899 Other long term (current) drug therapy
CPT/HCPCS: 80048; 85025; 87040; 96374; 99283; J3370

== ENCOUNTER 2016-07-20 05:09 | Emergency (ER) | payer BC | END 2016-07-20 05:29 | disposition home or self-care (01) | LOC: ER 05:09 | DX: M10.9 Gout, unspecified (principal); M79.672 Pain in left foot; I10 Essential (primary) hypertension; E78.5 Hyperlipidemia, unspecified; I73.9 Peripheral vascular disease, unspecified; Z88.0 Allergy status to penicillin; Z88.2 Allergy status to sulfonamides; Z79.899 Other long term (current) drug therapy; Z79.82 Long term (current) use of aspirin | CPT/HCPCS: 73630-LT; 96372; 99284; A9270-GY ==